=== PATIENT | female | born 1995 | race African-American/Black ===

== ENCOUNTER 2017-10-08 18:47 | Emergency (ER) | payer OTHER ==
--- NOTE | 2017-10-08 19:55 | PDOC ---
Rapid Medical Evaluation Time Seen by Provider: 10/08/17 19:52 Medical Evaluation: Allergies Allergy/AdvReac Type Severity Reaction Status Date / Time No Known Allergies Allergy Verified 12/25/13 12:30 10/08/17 19:53 I have performed a [id number] evaluation. The patient presents with a chief complaint: Dizzy, tired, pelvic pain and left breast pain "I feel a lump" LMP: 09/13/2017 Pertinent physical exam findings: L/S CTAB, Abd soft/NT/ND I have ordered the following: ua, upreg The patient will proceed to the ED for further evaluation.
[2017-10-08 20:01] VITALS: BP 131/76; PULSE 67; TEMP 98.8; BMI 34.3
--- NOTE | 2017-10-08 20:15 | PDOC ---
History of Present Illness - General Chief Complaint: Pain Stated Complaint: PAIN Time Seen by Provider: 10/08/17 19:52 - History of Present Illness Initial Comments: 10/08/17 20:15 Ms. Brady is a 22 yo female w/ pmh of HTN who presents for evaluation of 3 month history of left breast pain and 1 day history of right sided pelvic pain she describes as "bursting" in nature. She reports that she has intermittently had right pelvic pain in the past however it has never been as bad as earlier today. She also describes feeling a lump in her left breast today while in the shower. Ms. Brady also endorses recent single episode of constipation followed by diarrhea. The patient denies chest pain, shortness of breath, headache and dizziness. Denies fever, chills, nausea, vomit, diarrhea and constipation. Denies dysuria, frequency, urgency and hematuria. Allergies: NKDA Past History - Past Medical History Allergies/Adverse Reactions: Allergies Allergy/AdvReac Type Severity Reaction Status Date / Time No Known Allergies Allergy Verified 12/25/13 12:30 Home Medications: Ambulatory Orders Simethicone [Mylicon -] 80 mg PO QID PRN #30 tab.chew 12/25/13 - Immunization History Immunization Up to Date: Yes - Suicide/Smoking/Psychosocial Hx Smoking History: Current every day smoker Have you smoked in the past 12 months: Yes Number of Cigarettes Smoked Daily: 5 Information on smoking cessation initiated: No Hx Alcohol Use: No Drug/Substance Use Hx: No Substance Use Type: None Hx Substance Use Treatment: No Review of Systems - Review of Systems Comments:: 10/08/17 20:38 GENERAL/CONSTITUTIONAL: No fever or chills. No weakness. HEAD, EYES, EARS, NOSE AND THROAT: No change in vision. No ear pain or discharge. No sore throat. CARDIOVASCULAR: No chest pain or shortness of breath RESPIRATORY: No cough, wheezing, or hemoptysis. GASTROINTESTINAL: +Diarrhea/constipation as described. +1 day of right pelvic pain. No nausea or vomiting. GENITOURINARY: No dysuria, frequency, or change in urination. MUSCULOSKELETAL: No joint or muscle swelling or pain. No neck or back pain. SKIN: No rash NEUROLOGIC: No headache, vertigo, loss of consciousness, or change in strength/ sensation. ENDOCRINE: No increased thirst. No abnormal weight change HEMATOLOGIC/LYMPHATIC: No anemia, easy bleeding, or history of blood clots. ALLERGIC/IMMUNOLOGIC: No hives or skin allergy. *Physical Exam - Vital Signs Last Vital Signs Temp Pulse Resp BP Pulse Ox 98.8 F 67 20 131/76 100 10/08/17 19:56 10/08/17 19:56 10/08/17 19:56 10/08/17 19:56 10/08/17 19:56 - Physical Exam Comments: 10/08/17 20:38 GENERAL: Awake, alert, and fully oriented, in no acute distress HEAD: No signs of trauma, normocephalic, atraumatic EYES: PERRLA, EOMI, sclera anicteric, conjunctiva clear ENT: Auricles normal inspection, hearing grossly normal, nares patent, oropharynx clear without exudates. Moist mucosa NECK: Normal ROM, supple, no lymphadenopathy, JVD, or masses LUNGS: +Unable to appreciate lump in chest. No distress, speaks full sentences, clear to auscultation bilaterally HEART: Regular rate and rhythm, normal S1 and S2, no murmurs, rubs or gallops, peripheral pulses normal and equal bilaterally. ABDOMEN: Soft, nontender, normoactive bowel sounds. No guarding, no rebound. No masses EXTREMITIES: Normal inspection, Normal range of motion, no edema. No clubbing or cyanosis. NEUROLOGICAL: Cranial nerves II through XII grossly intact. Normal speech, normal gait, no focal sensorimotor deficits SKIN: Warm, Dry, normal turgor, no rashes or lesions noted. : Right sided adnexal tenderness. No CMT, Os closed. ED Treatment Course - LABORATORY CBC & Chemistry Diagram: 10/08/17 22:03 10/08/17 22:03 Medical Decision Making - Medical Decision Making 10/08/17 23:59 Ms. Brady is a 22 yo female w/ pmh as described who presents for evaluation of right sided abdominal pain. Patient well appearing, however exam concerning for right sided pelvic adnexal tenderness. US ordered in addition to labs as below for evaluation of ectopic vs. torsion. Patient noted to have 3.2 cm right ovarian cyst. No other concerning findings appreciated. No concern for acute process at this time. Discharging to home w/ instructions to f/u with [facility] TECHNICIAN for further evaluation. Laboratory Results - last 24 hr 10/08/17 10/08/17 10/08/17 22:03 22:03 22:03 WBC 9.2 RBC 4.51 Hgb 11.9 Hct 36.0 MCV 79.8 L MCH 26.3 MCHC 33.0 RDW 15.9 H Plt Count 221 MPV 9.7 Absolute Neuts (auto) 6.2 Neutrophils % 67.5 D Lymphocytes % 26.5 D Monocytes % 4.6 Eosinophils % 0.6 Basophils % 0.8 Nucleated RBC % 0 PT with INR INR Sodium 141 Potassium 4.3 Chloride 109 H Carbon Dioxide 25 Anion Gap 7 L BUN 17 Creatinine 0.8 Creat Clearance w eGFR > 60 Random Glucose 79 Calcium 9.0 Total Bilirubin 0.2 AST 12 L ALT 26 Alkaline Phosphatase 100 Total Protein 7.1 Albumin 3.6 Urine Color Ltyellow Urine Appearance Clear Urine pH 5.0 Ur Specific Alloy 1.026 Urine Protein Negative Urine Glucose (UA) Negative Urine Ketones Negative Urine Blood Negative Urine Nitrite Negative Urine Bilirubin Negative Urine Urobilinogen Negative Ur Leukocyte Esterase Negative Urine HCG, Qual Negative 10/08/17 22:14 WBC RBC Hgb Hct MCV MCH MCHC RDW Plt Count MPV Absolute Neuts (auto) Neutrophils % Lymphocytes % Monocytes % Eosinophils % Basophils % Nucleated RBC % PT with INR 13.00 INR 1.15 H Sodium Potassium Chloride Carbon Dioxide Anion Gap BUN Creatinine Creat Clearance w eGFR Random Glucose Calcium Total Bilirubin AST ALT Alkaline Phosphatase Total Protein Albumin Urine Color Urine Appearance Urine pH Ur Specific Alloy Urine Protein Urine Glucose (UA) Urine Ketones Urine Blood Urine Nitrite Urine Bilirubin Urine Urobilinogen Ur Leukocyte Esterase Urine HCG, Qual *DC/Admit/Observation/Transfer Diagnosis at time of Disposition: Ovarian cyst Qualifiers: Laterality: right Qualified Code(s): N83.201 - Unspecified ovarian cyst, right side - Discharge Dispostion Disposition: HOME - Referrals Referrals: Manohar Hopkins MD [Primary Care Provider] - Constance Lorenzo MD [Staff Physician] - - Patient Instructions Printed Discharge Instructions: DI for Ovarian Cyst Additional Instructions: Follow-up with [facility] TECHNICIAN later this week for further evaluation. Please return to ER if any further pain, fevers, chills, or other concerning symptoms. - Post Discharge Activity
--- NOTE | 2017-10-08 21:39 | PDOC ---
Attending Attestation - HPI HPI: 10/08/17 21:40 The patient is a 22 year old female, with a significant past medical history of hypertension, who presents to the emergency department with, 3 months of left sided breast pain and 1 day of intermittent right sided pelvic pain. She describes her pelvic pain as bursting. She reports feeling a lump in her left breast today. Allergies: NKA Past surgical history: None reported. Social history: Current smoker (5 cigarettes per day). Primary Care Physician: Dr. Manohar Hopkins <Mayank Oconnor - Last Filed: 10/08/17 21:40> - Resident Resident Name: Michoacano Middleton - ED Attending Attestation I have performed the following: I have examined & evaluated the patient, The case was reviewed & discussed with the resident, I agree w/resident's findings & plan, Exceptions are as noted - Physicial Exam PE: 10/08/17 23:27 Patient is awake and alert, obese, in no distress normocephalic and atraumatic PERRLA, EOMI, no scleral icterus CTA Abdomen is soft, nondistended,+ mild right lower pelvic tenderness deep palpation, there is no guarding or rebound, no CVA tenderness, See pelvic exam by Dr. Middleton - Medical Decision Making 10/08/17 23:28 Patient is a 22-year-old female who presents with atraumatic right lower pelvic pain. Patient is mild right lower pelvic and adnexal tenderness. Differential diagnoses includes ovarian cyst versus PID versus ovarian torsion. We'll obtain CBC/CMP/UA/ECG/ultrasound. Will reassess. 10/08/17 23:32 Patient is resting comfortably, tolerates by mouth. CBC/CMP/UA within normal limit. Transvaginal ultrasound shows a right sided ovarian cyst without evidence of torsion. I do not suspect acute appendicitis at this time. Will discharge. <Darrell Capellan - Last Filed: 10/08/17 23:32> Attestations - Attestations 10/08/17 21:40 Documentation prepared by Mayank Oconnor, acting as medical device for Darrell Capellan MD. <Mayank Oconnor - Last Filed: 10/08/17 21:40>
[2017-10-08 22:13] LABS: BASO % 0.8 % (0-2.0); EOS % 0.6 % (0-4.5); HEMOGLOBIN 11.9 GM/dL (10.7-15.3); LYMPH % 26.5 % (8-40); MCH 26.3 pg (25.7-33.7); MEAN CELL VOLUME 79.8 fl (80-96); MEAN PLT VOLUME 9.7 fl (7.5-11.1); MONO % 4.6 % (3.8-10.2); NEUT % 67.5 % (42.8-82.8); PLATELET COUNT 221 K/MM3 (134-434); RBC 4.51 M/mm3 (3.60-5.2); RDW 15.9 % (11.6-15.6); WHITE BLOOD COUNT 9.2 K/mm3 (4.0-10.0)
[2017-10-08 22:40] LABS: URINE APPEARANCE CLEAR; URINE BILIRUBIN NEGATIVE (<2.0 mg/dL); URINE COLOR LTYELLOW; URINE GLUCOSE (UA) NEGATIVE (NEGATIVE); URINE KETONE NEGATIVE (NEGATIVE); URINE LEUK ESTERASE NEGATIVE (NEGATIVE); URINE NITRITE NEGATIVE (NEGATIVE); URINE PROTEIN NEGATIVE (NEGATIVE); URINE UROBILINOGEN NEGATIVE mg/dL (0.2-1.0)
[2017-10-08 22:54] LABS: INR 1.15 (0.82-1.09)
[2017-10-08 22:56] LABS: ALBUMIN 3.6 g/dl (3.4-5.0); ALK PHOS 100 U/L (45-117); ANION GAP 7 (8-16); BILIRUBIN,TOTAL 0.2 mg/dL (0.2-1.0); BLOOD UREA NITROGEN 17 mg/dL (7-18); CHLORIDE 109 mmol/L (98-107); CO2 25 mmol/L (21-32); CREATININE 0.8 mg/dL (0.55-1.02); GLUCOSE,RANDOM 79 mg/dL (74-106); POTASSIUM 4.3 mmol/L (3.5-5.1); SGOT/AST 12 U/L (15-37); SGPT/ALT 26 U/L (12-78); SODIUM 141 mmol/L (136-145); TOT PROT 7.1 g/dl (6.4-8.2)
[2017-10-08 23:24] LABS: HCG,QUALITATIVE URINE NEGATIVE
== END 2017-10-09 00:10 | disposition home or self-care (01) ==
LOC: JER 18:47
DX: N83.201 Unspecified ovarian cyst, right side (principal); N63.20 Unspecified lump in the left breast, unspecified quadrant
CPT/HCPCS: 36415; 76830-TC; 80053; 81003; 84703; 85025; 85610; 86850; 86900; 86901; 87086; 99282-25

== ENCOUNTER 2018-02-15 16:00 | Emergency (ER) | payer OTHER ==
[2018-02-15 16:12] VITALS: BP 139/87; PULSE 80; TEMP 98.1; BMI 38.4
--- NOTE | 2018-02-15 17:27 | PDOC ---
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 She states over the last 2 or 3 days she's had blurring of her vision and bilateral eye pain R>L Past History - Past Medical History Allergies/Adverse Reactions: Allergies Allergy/AdvReac Type Severity Reaction Status Date / Time No Known Allergies Allergy Verified 02/15/18 16:08 Home Medications: Ambulatory Orders NK [No Known Home Medication] 02/15/18 COPD: No HTN: Yes (no meds) - Immunization History Immunization Up to Date: Yes - Suicide/Smoking/Psychosocial Hx Smoking History: Current every day smoker Have you smoked in the past 12 months: Yes Number of Cigarettes Smoked Daily: 5 Information on smoking cessation initiated: No Hx Alcohol Use: No Drug/Substance Use Hx: No Substance Use Type: None Hx Substance Use Treatment: No Review of Systems - Review of Systems HEENTM: Yes: See HPI, Eye Pain, Blurred Vision *Physical Exam - Vital Signs Last Vital Signs Temp Pulse Resp BP Pulse Ox 98.1 F 80 16 139/87 100 02/15/18 16:09 02/15/18 16:09 02/15/18 16:09 02/15/18 16:09 02/15/18 16:09 - Physical Exam Comments: 02/15/18 17:24 HEAD: NC/AT EYES: Conjuntiva clear, R eye papillary edema on fundiscopic examination, L appears normal on my exam, pupiles dilated but PERRL, EOMI, B20/40, R 20./30 L 20/30 NEUROLOGIC: No gross sensory or motor deficits, NVID SKIN: Normal color and temperature no lesions or rashes Moderate Sedation - Procedure Monitoring Vital Signs: Procedure Monitoring Vital Signs Temperature 98.1 F 02/15/18 16:09 Pulse Rate 80 02/15/18 16:09 Respiratory Rate 16 02/15/18 16:09 Blood Pressure 139/87 02/15/18 16:09 O2 Sat by Pulse Oximetry (%) 100 02/15/18 16:09 Medical Decision Making - Medical Decision Making 02/15/18 17:26 optomology called 02/15/18 17:42 d/w Dr Acuna, optomology, who will see pt in f/u after referal obtained from PCP , no emergent intervention required today. *DC/Admit/Observation/Transfer Diagnosis at time of Disposition: Edema of soft tissue due to increased capillary pressure - Discharge Dispostion Disposition: HOME Condition at time of disposition: Stable Decision to Admit order: No - Referrals Referrals: Dennis Hopkins [Primary Care Provider] - Mirna Acuna MD [Staff Physician] - - Patient Instructions Additional Instructions: Return to the emergency room should symptoms worsen or go unresolved. Please follow-up with your primary care physician and obtain a referral to ophthalmology. Slag Worker will see you with the next 1-2 days. - Post Discharge Activity
== END 2018-02-15 17:54 | disposition home or self-care (01) ==
LOC: JERFT 16:00 → JER 16:00 → JERFT 17:54
DX: H47.10 Unspecified papilledema (principal); I10 Essential (primary) hypertension
CPT/HCPCS: 99281-25

== ENCOUNTER 2018-02-19 10:14 | Emergency (ER) | payer OTHER ==
[2018-02-19 10:27] VITALS: BP 127/77; PULSE 71; TEMP 98.4; BMI 38.4
[2018-02-19] MEDS ORDERED: SODIUM CHLORIDE 1,000 ML IV STA (10:38)
[2018-02-19] MEDS ORDERED: FAMOTIDINE 20 MG/50 ML IVPB 20 MG/50 ML MG IVPB ONE ×2 (10:38→11:22)
[2018-02-19] MEDS ORDERED: ONDANSETRON 4 MG/2 ML VIAL IVPUSH ONE (10:38)
[2018-02-19 11:16] LABS: BASO % 0.7 % (0-2.0); EOS % 0.8 % (0-4.5); HEMATOCRIT 33.2 % (32.4-45.2); HEMOGLOBIN 11.3 GM/dL (10.7-15.3); LYMPH % 23.7 % (8-40); MCH 27.2 pg (25.7-33.7); MCHC 34.2 g/dl (32.0-36.0); MEAN CELL VOLUME 79.6 fl (80-96); MEAN PLT VOLUME 9.7 fl (7.5-11.1); MONO % 5.6 % (3.8-10.2); NEUT % 69.2 % (42.8-82.8); PLATELET COUNT 215 K/MM3 (134-434); RBC 4.17 M/mm3 (3.60-5.2); RDW 15.5 % (11.6-15.6); WHITE BLOOD COUNT 6.2 K/mm3 (4.0-10.0)
[2018-02-19 11:20] LABS: ALBUMIN 3.5 g/dl (3.4-5.0); ALK PHOS 92 U/L (45-117); ANION GAP 6 MMOL/L (8-16); BILIRUBIN,TOTAL 0.2 mg/dL (0.2-1); BLOOD UREA NITROGEN 15 mg/dL (7-18); CALCIUM 8.7 mg/dL (8.5-10.1); CHLORIDE 107 mmol/L (98-107); CO2 26 mmol/L (21-32); CREATININE 0.8 mg/dL (0.55-1.3); GLUCOSE,RANDOM 82 mg/dL (74-106); LIPASE 112 U/L (73-393); POTASSIUM 4.1 mmol/L (3.5-5.1); SGOT/AST 15 U/L (15-37); SGPT/ALT 16 U/L (13-61); SODIUM 139 mmol/L (136-145); TOT PROT 6.8 g/dl (6.4-8.2)
--- NOTE | 2018-02-19 11:25 | PDOC ---
History of Present Illness - General Chief Complaint: Nausea/Vomiting Stated Complaint: NAUSEA/VOMITING Time Seen by Provider: 02/19/18 10:34 History Source: Patient Exam Limitations: No Limitations - History of Present Illness Initial Comments: 02/19/18 11:14 22 yo female no sig pmh presents to the ED with 4 days of cough, sore throat, AIKEN , fevers and 1 episode of NB/NB vomiting today. Pt denies sick contacts, recent travel or eating new foods. Denies abdominal pain, changes in bowel or bladder habits. Past History - Past Medical History Allergies/Adverse Reactions: Allergies Allergy/AdvReac Type Severity Reaction Status Date / Time No Known Allergies Allergy Verified 02/19/18 10:26 Home Medications: Ambulatory Orders Ondansetron HCl [Zofran] 4 mg PO BID #6 tablet 02/19/18 COPD: No HTN: Yes (no meds) - Immunization History Immunization Up to Date: Yes - Suicide/Smoking/Psychosocial Hx Smoking History: Current every day smoker Have you smoked in the past 12 months: Yes Number of Cigarettes Smoked Daily: 2 Information on smoking cessation initiated: No Hx Alcohol Use: No Drug/Substance Use Hx: No Substance Use Type: None Hx Substance Use Treatment: No Review of Systems - Review of Systems Constitutional: Yes: Fever. No: Chills, Weakness Respiratory: No: Shortness of Breath Cardiac (ROS): No: Chest Pain ABD/GI: Yes: Nausea, Vomiting. No: Constipated, Diarrhea : No: Burning, Dysuria Neurological: Yes: Headache. No: Numbness, Tingling, Ataxia, Dizziness *Physical Exam - Vital Signs Last Vital Signs Temp Pulse Resp BP Pulse Ox 98.4 F 71 18 127/77 99 02/19/18 10:24 02/19/18 10:24 02/19/18 10:24 02/19/18 10:24 02/19/18 10:24 - Physical Exam General Appearance: Yes: Nourished, Appropriately Dressed. No: Apparent Distress HEENT: positive: EOMI. negative: Pale Conjunctivae, Tonsillar Erythema, TM Bulging, TM Erythema Respiratory/Chest: positive: Lungs Clear, Normal Breath Sounds. negative: Crackles, Wheezing Cardiovascular: positive: Regular Rhythm, Regular Rate, S1, S2. negative: Edema , JVD, Murmur Vascular Pulses: Dorsalis-Pedis (R): 3+, Doralis-Pedis (L): 3+ Gastrointestinal/Abdominal: positive: Normal Bowel Sounds, Flat, Soft. negative : Pulsatile Mass, Distended, Guarding, Rebound, Tenderness Extremity: positive: Normal Capillary Refill Integumentary: positive: Normal Color, Dry, Warm Neurologic: positive: Fully Oriented, Alert, Normal Mood/Affect, Normal Response Moderate Sedation - Procedure Monitoring Vital Signs: Procedure Monitoring Vital Signs Temperature 98.4 F 02/19/18 10:24 Pulse Rate 71 02/19/18 10:24 Respiratory Rate 18 02/19/18 10:24 Blood Pressure 127/77 02/19/18 10:24 O2 Sat by Pulse Oximetry (%) 99 02/19/18 10:24 ED Treatment Course - LABORATORY CBC & Chemistry Diagram: 02/19/18 10:55 02/19/18 10:55 Medical Decision Making - Medical Decision Making 02/19/18 12:33 22 yo female presents with 3 days AIKEN, and 1 episode NB/NB vomiting. No concerning s/s on exam. See PE Vitals WNL Labs WNL, no WBC UA negative Strep and Flu negative States she had work at 10 30 am and needs a note. Tylenol by mouth given for AIKEN and Zofran sent to pharmacy PCP follow up and strict return precautions given *DC/Admit/Observation/Transfer Diagnosis at time of Disposition: Viral syndrome - Discharge Dispostion Disposition: HOME Condition at time of disposition: Stable Decision to Admit order: No - Referrals Referrals: Manohar Hopkins MD [Primary Care Provider] - - Patient Instructions Printed Discharge Instructions: DI for Nausea -- Adult, DI for Vomiting -- Adult Additional Instructions: Please follow up with your Primary Care Doctor within the next 2 days. Take over the counter Tylenol and Motrin for continued headaches. Take Zofran as needed for nausea as prescribed. Please return to the emergency room for new or worsening symptoms including but not limited to: high fevers, severe headache or nausea not relieved by medications. Thank you - Post Discharge Activity Forms/Work/School Notes: Back to Work
[2018-02-19 12:04] LABS: HCG,QUALITATIVE URINE Negative
[2018-02-19 12:09] LABS: URINE APPEARANCE CLEAR; URINE BILIRUBIN NEGATIVE (<2.0 mg/dL); URINE COLOR LTYELLOW; URINE GLUCOSE (UA) NEGATIVE (NEGATIVE); URINE KETONE NEGATIVE (NEGATIVE); URINE LEUK ESTERASE NEGATIVE (NEGATIVE); URINE NITRITE NEGATIVE (NEGATIVE); URINE PROTEIN NEGATIVE (NEGATIVE); URINE UROBILINOGEN NEGATIVE mg/dL (0.2-1.0)
[2018-02-19] MEDS ORDERED: ACETAMINOPHEN 325 MG TABLET (FP) PO ONE (12:35)
--- NOTE | 2018-02-19 12:44 | PDOC ---
Attending Attestation - Resident Resident Name: Vinay Suarez - ED Attending Attestation I have performed the following: I have examined & evaluated the patient, The case was reviewed & discussed with the resident, I agree w/resident's findings & plan - HPI HPI: 02/19/18 12:41 Ms. Prado is a 22 year old female with past medical history significant for HTN presents to the emergency department with 4 day hx of nonproductive cough, headache. The patient reports the symptoms progressed into nausea with a single episode of NBNB emesis today. took an unknown abx for her ear yesterday. Denies diarrhea, fever, chills, known sick contact, or recent travel. No surgical history reported. Allergies: NKA Social history: Current smoker (5 cigarettes per day). PCP: Dr. Manohar Hopkins - Physicial Exam PE: 02/19/18 12:42 NAD, well appearing, MMM, nl conjunctiva, anicteric; neck supple. lungs clear, RRR, abdomen soft nontender. KOTHARI x4, no focal neuro deficits. No peripheral edema. normal color for ethnicity, WWP. - Medical Decision Making 02/19/18 12:42 see HPI for details well appearing, vitals wnl.no neuro changes, no systemic findings or infection. labs and lytes normal strep test and flu neg likely medication side effect, took abx with GI side effect. work note given fluids and pepcid, tylenol for mild headache. DC with zofran, told to not take medications that was not prescribed. doubt bacterial etiology or infection, so no abx indicated. DC in stable condition,r eturn precautions discussed. pt made aware of impression and plan agreeable
[2018-02-19] MEDS ORDERED: ACETAMINOPHEN 325 MG TABLET (FP) ONE (12:47)
== END 2018-02-19 13:04 | disposition home or self-care (01) ==
LOC: JER 10:14
PROC: 3E033GC Introduction of Other Therapeutic Substance into Peripheral Vein, Percutaneous Approach (ICD-10-PCS; principal; 2018-02-19)
DX: B34.9 Viral infection, unspecified (principal); R11.2 Nausea with vomiting, unspecified
CPT/HCPCS: 36415; 80053; 81003; 83690; 84703; 85025; 87070; 87077; 87804; 96365; 99282-25; J7030

== ENCOUNTER 2018-03-09 12:21 | Emergency (ER) | payer OTHER ==
--- NOTE | 2018-03-09 12:28 | PDOC ---
Rapid Medical Evaluation Medical Evaluation: Allergies Allergy/AdvReac Type Severity Reaction Status Date / Time No Known Allergies Allergy Verified 02/19/18 10:26 I have performed a brief in-person evaluation of this patient. The patient presents with a chief complaint of: c/o headache, dizziness, blurred vision going on for months; was seen by applications processor (see patient's note for findings); advised to see neurologist to get MRI and/or spinal tap to r/o papilledema Pertinent physical exam findings: Unremarkable; no gross focal deficits I have ordered the following: UCG The patient will proceed to the ED for further evaluation. 03/09/18 12:24
[2018-03-09 12:29] VITALS: BMI 41.8
--- NOTE | 2018-03-09 12:36 | PDOC ---
History of Present Illness - General History Source: Patient, Other (Eye doctor note. 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 The patient reports shes been having one month of a headache, pain with eye movement, blurry vision, and diplopia. The patient indicates the symptoms are associated with difficulty falling asleep, reports taking Benadryl , without relief. The patient reports additional complain of urinary incontinence denies numbness or tingling to the fingers. The patient was seen at [facility] where Dr. Esteban Faustin saw her. Per letter by Dr. Faustin, BCVA is 20/30 OD and 20/30 OS and IOP of 22/22 mmHg, dilated eye exam showed blurred and obscured disc margin, edema OU. The patient was sent to the ER for further work up to r/o papilledema. LMP: Currently. Allergies: NKDA Social history: Tobacco use reported. Surgical history: L. leg surgery (July 2016) PCP: Dr. Hopkins. <Shayy Villatoro - Last Filed: 03/09/18 14:00> <Darrell Capellan - Last Filed: 03/12/18 02:02> - General Chief Complaint: Eye Problem Stated Complaint: HEADACHE, BLURRY VISION, SENT BY EYE DOCTOR Time Seen by Provider: 03/09/18 12:36 Past History <Shayy Villatoro - Last Filed: 03/09/18 14:00> - Past Medical History COPD: No HTN: Yes (no meds) - Immunization History Immunization Up to Date: Yes - Suicide/Smoking/Psychosocial Hx Smoking History: Never smoked Have you smoked in the past 12 months: No Number of Cigarettes Smoked Daily: 2 Information on smoking cessation initiated: No Hx Alcohol Use: No Drug/Substance Use Hx: No Substance Use Type: None Hx Substance Use Treatment: No <Darrell Capellan - Last Filed: 03/12/18 02:02> - Past Medical History Allergies/Adverse Reactions: Allergies Allergy/AdvReac Type Severity Reaction Status Date / Time No Known Allergies Allergy Verified 03/09/18 12:29 Home Medications: Ambulatory Orders Ondansetron HCl [Zofran] 4 mg PO BID #6 tablet 02/19/18 Azithromycin [Zithromax -] 250 mg PO UTDICT #6 tab 02/22/18 acetaZOLAMIDE [Diamox Sequels -] 500 mg PO BID #28 capsule.er 03/09/18 Review of Systems - Review of Systems Able to Perform ROS?: Yes Comments:: 03/09/18 12:56 CONSTITUTIONAL: No fever, no chills, no fatigue EYES: +eye pain, pain with movement, blurry vision and diplopia. ENT: No ear pain, no sore throat CARDIOVASCULAR: No chest pain, no palpitations RESPIRATORY: No cough, no SOB GI: No abdominal pain, no nausea, no vomiting, no constipation, no diarrhea GENITOURINARY: +urinary incontinence. No dysuria, no frequency, no hematuria MUSKULOSKELETAL: No back pain, no joint pain, no myalgias SKIN: No rash NEURO: +headache. <Shayy Villatoro - Last Filed: 03/09/18 14:00> *Physical Exam - Vital Signs Last Vital Signs Temp Pulse Resp BP Pulse Ox 98.4 F 79 17 124/92 100 03/09/18 12:26 03/09/18 12:26 03/09/18 12:26 03/09/18 12:26 03/09/18 12:26 - Physical Exam Comments: 03/09/18 14:01 CONSTITUTIONAL: +Morbid obese. Well-appearing; well-nourished; in no apparent distress HEAD: Normocephalic; atraumatic EYES: PERRL; EOM intact ENMT: External appears normal; normal oropharynx NECK: Supple; non-tender; no cervical lymphadenopathy CARD: Normal S1, S2; no murmurs, rubs, or gallops RESP: Normal chest excursion with respiration; breath sounds clear and equal bilaterally; no wheezes, rhonchi, or rales ABD: Soft, non-distended; non-tender; no palpable organomegaly, no palpable hernias EXT: Normal ROM in all four extremities; non-tender to palpation; distal pulses intact SKIN: Warm, dry, no rash NEURO: +Cranial Nerve 2-12 intact, 5/5 x4 motor strength, no pronator drift. Decreased reflex at the knee bilaterally. <Shayy Villatoro - Last Filed: 03/09/18 14:00> - Vital Signs Last Vital Signs Temp Pulse Resp BP Pulse Ox 98.4 F 79 17 124/92 100 03/09/18 12:26 03/09/18 12:26 03/09/18 12:26 03/09/18 12:26 03/09/18 12:26 <Darrell Capellan - Last Filed: 03/12/18 02:02> Moderate Sedation - Procedure Monitoring Vital Signs: Procedure Monitoring Vital Signs Temperature 98.4 F 03/09/18 12:26 Pulse Rate 79 03/09/18 12:26 Respiratory Rate 17 03/09/18 12:26 Blood Pressure 124/92 03/09/18 12:26 O2 Sat by Pulse Oximetry (%) 100 03/09/18 12:26 <hSayy Villatoro - Last Filed: 03/09/18 14:00> - Procedure Monitoring Vital Signs: Procedure Monitoring Vital Signs Temperature 98.4 F 03/09/18 12:26 Pulse Rate 79 03/09/18 12:26 Respiratory Rate 17 03/09/18 12:26 Blood Pressure 124/92 03/09/18 12:26 O2 Sat by Pulse Oximetry (%) 100 03/09/18 12:26 <Darrell Capellan - Last Filed: 03/12/18 02:02> ED Treatment Course - LABORATORY CBC & Chemistry Diagram: 03/09/18 13:26 03/09/18 13:26 <Shayy Villatoro - Last Filed: 03/09/18 14:00> - LABORATORY CBC & Chemistry Diagram: 03/09/18 13:26 03/09/18 13:26 <Darrell Capellan - Last Filed: 03/12/18 02:02> Medical Decision Making - Medical Decision Making 03/09/18 12:56 Phone Calls: Case discussed with Dr. Faustin [phone] at 12:46 pm. <Shayy Villatoro - Last Filed: 03/09/18 14:00> - Medical Decision Making 03/09/18 16:08 Patient is a 22-year-old female, morbidly obese, who presents to the ER with chronic headaches which are worse in supine position, diplopia as well as blurry vision who was recently diagnosed with bilateral papilledema by ophthalmology. Patient is nonfocal neurologically. MRI of brain reveals no evidence of underlying intracranial pathology. LP was performed with opening pressure noted to be between 39 and 40mm. CSF was obtained for analysis. Patient reports significant improvement in her headache and visual symptoms after the procedure. Will discuss with neurology. We'll consider Diamox with outpatient follow-up. <Darrell Capellan - Last Filed: 03/12/18 02:02> *DC/Admit/Observation/Transfer - Attestations Scribe Attestion: 03/09/18 12:56 Documentation prepared by Shayy Villatoro, acting as pediatric medical assistant for Darrell Capellan MD. <Shayy Villatoro - Last Filed: 03/09/18 14:00> - Attestations Physician Attestion: 03/09/18 16:07 The documentation was prepared by the scribe under my direct supervision. I have reviewed the documentation which correctly represents the findings, medical decision-making and critical action taken by me. <Darrell Capellan - Last Filed: 03/12/18 02:02> Diagnosis at time of Disposition: Elevated intracranial pressure - Discharge Dispostion Disposition: HOME - Prescriptions Prescriptions: acetaZOLAMIDE [Diamox Sequels -] 500 mg PO BID #28 capsule.er - Referrals Referrals: [facility] [place] [facility] [place] [Provider Group] Adebayo Hamilton MD [Staff Physician] - - Patient Instructions Additional Instructions: You were seen in the emergency department for your headaches. your lumbar puncture indicates you have elevated intracranial pressures and we are prescribing you a medication to be taken twice a day. you need to follow up with the neurologist immediately after discharge. his phone number is included in the discharge packet. please take the prescription sent to the pharmacy you stated at registration as directed. please return to the emergency department if you have worsening symptoms or new concerning symptoms such as weakness, uncontrolled vomiting, worsening headaches, visual loss, and confusion. thank you.
[2018-03-09 13:47] LABS: BASO % 0.8 % (0-2.0); EOS % 0.7 % (0-4.5); HEMATOCRIT 35.6 % (32.4-45.2); HEMOGLOBIN 11.2 GM/dL (10.7-15.3); LYMPH % 31.3 % (8-40); MCH 25.2 pg (25.7-33.7); MCHC 31.4 g/dl (32.0-36.0); MEAN CELL VOLUME 80.4 fl (80-96); MEAN PLT VOLUME 9.3 fl (7.5-11.1); MONO % 6.1 % (3.8-10.2); NEUT % 61.1 % (42.8-82.8); PLATELET COUNT 208 K/MM3 (134-434); RBC 4.42 M/mm3 (3.60-5.2); RDW 15.4 % (11.6-15.6); WHITE BLOOD COUNT 5.7 K/mm3 (4.0-10.0)
[2018-03-09 14:09] LABS: INR 1.08 (0.83-1.09); PROTHROMBIN TIME (PATIENT) 12.7 SEC (9.7-13.0)
[2018-03-09 14:22] LABS: ALBUMIN 3.5 g/dl (3.4-5.0); ALK PHOS 111 U/L (45-117); ANION GAP 6 MMOL/L (8-16); BILIRUBIN,TOTAL 0.3 mg/dL (0.2-1); BLOOD UREA NITROGEN 15 mg/dL (7-18); CALCIUM 8.7 mg/dL (8.5-10.1); CHLORIDE 104 mmol/L (98-107); CO2 27 mmol/L (21-32); CREATININE 0.8 mg/dL (0.55-1.3); GLUCOSE,RANDOM 83 mg/dL (74-106); POTASSIUM 4.6 mmol/L (3.5-5.1); SGOT/AST 26 U/L (15-37); SGPT/ALT 33 U/L (13-61); SODIUM 137 mmol/L (136-145); TOT PROT 7.2 g/dl (6.4-8.2)
[2018-03-09] MEDS ORDERED: MIDAZOLAM HCL 2 MG/2 ML SINGLE DOSE VIAL ONE (14:22)
[2018-03-09] MEDS ORDERED: LIDOCAINE 1%/EPI 1:100000 (20 ML MULTI DOSE VIAL) ONE (14:22)
[2018-03-09 15:49] LABS: ERYTHROCYTE SEDIMENTATION RATE 28 mm/hr (0-20)
[2018-03-09] MEDS ORDERED: MIDAZOLAM HCL 2 MG/2 ML SINGLE DOSE VIAL IVPUSH ONE (15:55)
--- NOTE | 2018-03-09 16:58 | PDOC ---
*Physical Exam - Vital Signs Last Vital Signs Temp Pulse Resp BP Pulse Ox 98.4 F 79 17 124/92 100 03/09/18 12:26 03/09/18 12:26 03/09/18 12:26 03/09/18 12:26 03/09/18 12:26 ED Treatment Course - LABORATORY CBC & Chemistry Diagram: 03/09/18 13:26 03/09/18 13:26 - ADDITIONAL ORDERS Additional order review: Laboratory Results 03/09/18 03/09/18 03/09/18 13:26 13:26 13:26 PT with INR 12.70 INR 1.08 Sodium 137 Potassium 4.6 Chloride 104 Carbon Dioxide 27 Anion Gap 6 L BUN 15 Creatinine 0.8 Creat Clearance w eGFR > 60 Random Glucose 83 Calcium 8.7 Total Bilirubin 0.3 AST 26 ALT 33 Alkaline Phosphatase 111 C-Reactive Protein 1.4 H Total Protein 7.2 Albumin 3.5 Urine HCG, Qual Negative 03/09/18 13:26 RBC 4.42 MCV 80.4 MCHC 31.4 L RDW 15.4 MPV 9.3 Neutrophils % 61.1 Lymphocytes % 31.3 D Monocytes % 6.1 Eosinophils % 0.7 Basophils % 0.8 - Medications Given in the ED: ED Medications Discontinued Medications Generic Name Dose Route Start Last Admin Trade Name Freq PRN Reason Stop Dose Admin Midazolam HCl 2 mg 03/09/18 15:55 03/09/18 14:55 Versed - IVPUSH 03/09/18 15:56 2 mg ONCE ONE Administration Medical Decision Making - Medical Decision Making Prior to LP, patient has CN2-12 grossly intact, bilateral 5/5 strength UE and LE , intact sensation bilaterally, intact finger to nose. The patient tolerated the procedure well with minimal bleeding and discomfort. The patient 30 minutes later had retention of CN2-12 as grossly intact, bilateral 5/5 strength UE and LE, intact sensation bilaterally, and intact finger to nose bilaterally. *DC/Admit/Observation/Transfer Diagnosis at time of Disposition: Elevated intracranial pressure - Discharge Dispostion Disposition: HOME Decision to Admit order: No - Prescriptions Prescriptions: acetaZOLAMIDE [Diamox Sequels -] 500 mg PO BID #28 capsule.er - Referrals Referrals: Adebayo Hamilton MD [Staff Physician] - [facility] [place] [facility] [place] [Provider Group] - Patient Instructions Additional Instructions: You were seen in the emergency department for your headaches. your lumbar puncture indicates you have elevated intracranial pressures and we are prescribing you a medication to be taken twice a day. you need to follow up with the neurologist immediately after discharge. his phone number is included in the discharge packet. please take the prescription sent to the pharmacy you stated at registration as directed. please return to the emergency department if you have worsening symptoms or new concerning symptoms such as weakness, uncontrolled vomiting, worsening headaches, visual loss, and confusion. thank you. - Post Discharge Activity Lumbar Puncture Indication: IOP >20 with headache and visual changes bilaterally. Risks and Benefits Explained: Yes Consent on Chart: Yes Sterile Technique: Yes Skin prep: Betadine Position: Left lateral decubitus Site: L4-L51 Local Anesthesia: 1% Lidocaine with epi Opening Pressure(mmHg): 39 Closing Pressure(mmHg): 28 CSF Color, Appearance: Clear Sterile Dressing Applied: Yes Remarks: Pressure at the opening was 39-40 mmhg. At the conclusion of the procedure, a total of 12 cc of CSF was collected (3 cc each vial x4) and the pressure at the end of the procedure is 28 mmhg.
[2018-03-09 17:16] LABS: CSF APPEARANCE CLEAR; CSF COLOR COLORLESS; CSF WBC 2
[2018-03-09 18:20] LABS: BF GLUCOSE (CSF ONLY) 54 mg/dL (40-70)
[2018-03-09 18:21] VITALS: BP 138/86; PULSE 71; TEMP 98.2
== END 2018-03-09 18:15 | disposition home or self-care (01) ==
LOC: JER 12:21
PROC: 009U3ZZ Drainage of Spinal Canal, Percutaneous Approach (ICD-10-PCS; principal; 2018-03-09)
DX: G93.2 Benign intracranial hypertension (principal); R51 Headache; H53.8 Other visual disturbances; H53.2 Diplopia; H57.10 Ocular pain, unspecified eye
CPT/HCPCS: 36415; 70551-TC; 80053; 82438; 82945; 84157; 84703; 85025; 85610; 85651; 86140; 87070; 87205; 99283-25

== ENCOUNTER 2020-09-21 18:28 | Inpatient (IN) | payer OTHER ==
[2020-09-21 18:36] VITALS: BMI 37.4
[2020-09-21] MEDS ORDERED: METOCLOPRAMIDE HCL INJECTION 10 MG/2 ML VIAL IVPUSH ONE (20:22)
[2020-09-21] MEDS ORDERED: METOCLOPRAMIDE HCL INJECTION 10 MG/2 ML VIAL ONE (20:37)
[2020-09-21 20:44] LABS: BASO % 1.1 % (0-2.0); EOS % 0.8 % (0-4.5); HEMATOCRIT 37.1 % (32.4-45.2); HEMOGLOBIN 12.3 GM/dL (10.7-15.3); LYMPH % 32.7 % (8-40); MCH 25.3 pg (25.7-33.7); MCHC 33.1 g/dl (32.0-36.0); MEAN CELL VOLUME 76.5 fl (80-96); MEAN PLT VOLUME 9.4 fl (7.5-11.1); MONO % 5.8 % (3.8-10.2); NEUT % 59.6 % (42.8-82.8); PLATELET COUNT 284 10^3/uL (134-434); RBC 4.85 M/mm3 (3.60-5.2); RDW 16.2 % (11.6-15.6)
[2020-09-21 20:57] LABS: BLOOD UREA NITROGEN 13.6 mg/dL (7-18); CALCIUM 8.9 mg/dL (8.5-10.1)
[2020-09-21 20:58] LABS: ALBUMIN 3.8 g/dl (3.4-5.0); MAGNESIUM 2.2 mg/dL (1.8-2.4)
[2020-09-21 21:01] LABS: CREATININE 0.8 mg/dL (0.55-1.3); PHOSPHOROUS 3.2 mg/dL (2.5-4.9)
[2020-09-21 21:02] LABS: BILIRUBIN,TOTAL 0.4 mg/dL (0.2-1)
[2020-09-21] MEDS ORDERED: PROCHLORPERAZINE INJECTION 10 MG/2 ML VIAL IVPB ONE (21:02)
[2020-09-21] MEDS ORDERED: SODIUM CHLORIDE 0.9% 500 ML INFUS.BAG IV ONE (21:02)
[2020-09-21] MEDS ORDERED: PROCHLORPERAZINE INJECTION 10 MG/2 ML VIAL ONE (21:50)
[2020-09-21] MEDS ORDERED: LIDOCAINE 1%/EPI 1:100000 (20 ML MULTI DOSE VIAL) ONE (22:58)
[2020-09-21] MEDS ORDERED: ACETAMINOPHEN 1000 MG/100 ML VIAL (NON FORMULARY) IVPB ONE (23:30)
[2020-09-21] MEDS ORDERED: LORazepam 2 MG/ML SDV VIAL IVPUSH ONE (23:32)
[2020-09-22] MEDS ORDERED: LORazepam 2 MG/ML SDV VIAL ONE (00:01)
[2020-09-22] MEDS ORDERED: ACETAMINOPHEN INJECTION 100 ML IVPB ONE (00:02)
[2020-09-22] MEDS ORDERED: LIDOCAINE HCL 1%, 10 MG/ML (50 mL VIAL) SQ ONE (00:28)
[2020-09-22] MEDS ORDERED: LIDOCAINE HCL 1%, 10 MG/ML (20ML VIAL) ONE (00:33)
[2020-09-22 04:02] VITALS: TEMP 98.4
[2020-09-22] MEDS ORDERED: ACETAMINOPHEN 1000 MG/100 ML VIAL (NON FORMULARY) IVPB PRN (04:24)
[2020-09-22] MEDS ORDERED: ONDANSETRON 4 MG/2 ML VIAL IVPUSH PRN (04:24)
[2020-09-22 09:37] VITALS: BP 146/92; PULSE 70
[2020-09-22 09:40] LABS: INR 1.21 (0.83-1.09); PROTHROMBIN TIME (PATIENT) 14.6 SEC (9.7-13.0)
[2020-09-22] MEDS ORDERED: PRENATAL VITAMINS W/ FOLIC ACID TABLET (FP) PO SCH (10:00)
[2020-09-22 10:32] LABS: HEMATOCRIT 36.6 % (32.4-45.2); MCH 25.4 pg (25.7-33.7); MCHC 32.9 g/dl (32.0-36.0); MEAN CELL VOLUME 77.1 fl (80-96); MEAN PLT VOLUME 9.3 fl (7.5-11.1); PLATELET COUNT 239 10^3/uL (134-434); RBC 4.75 M/mm3 (3.60-5.2); RDW 16.3 % (11.6-15.6); WHITE BLOOD COUNT 7.9 K/mm3 (4.0-10.0)
[2020-09-22 10:52] LABS: CALCIUM 8.7 mg/dL (8.5-10.1)
[2020-09-22 10:53] LABS: BLOOD UREA NITROGEN 9.8 mg/dL (7-18)
[2020-09-22 10:56] LABS: CREATININE 0.8 mg/dL (0.55-1.3)
[2020-09-22 12:28] LABS: CSF APPEARANCE CLEAR; CSF COLOR COLORLESS
[2020-09-22 12:34] LABS: CSF WBC 0
[2020-09-22 12:38] LABS: BF GLUCOSE (CSF ONLY) 56 mg/dL (40-70)
[2020-09-22] MEDS ORDERED: acetaZOLAMIDE 250 MG TABLET PO SCH (13:45)
[2020-09-22] MEDS ORDERED: PT OWN MED DRAWER 7, Y5N ONE (14:06)
== END 2020-09-22 18:12 | disposition home or self-care (01) | DRG 54 ==
LOC: JER 18:28 → JERBED 09-22 01:44 → J7W 09-22 09:41
PROVIDERS: ADMIT Internal Medicine; ATTEND Internal Medicine
PROC: 009U3ZX Drainage of Spinal Canal, Percutaneous Approach, Diagnostic (ICD-10-PCS; principal; 2020-09-22)
DX: R51.9 Headache, unspecified (principal); H53.8 Other visual disturbances; F17.210 Nicotine dependence, cigarettes, uncomplicated; E66.9 Obesity, unspecified; Z68.37 Body mass index [BMI] 37.0-37.9, adult
CPT/HCPCS: 36415; 62272; 70450-TC; 76512; 80048; 80053; 82945; 83735; 84100; 84157; 84703; 85025; 85027; 85610; 85730; 87070; 87205; 87899; 93005; 93010; 99285-25; C9803; J0131; U0003; U0005

== ENCOUNTER 2020-11-30 20:17 | Emergency (ER) | payer OTHER ==
[2020-11-30 20:23] VITALS: BP 143/99; PULSE 96; TEMP 99.1; BMI 44.4
== END 2020-11-30 21:00 | disposition home or self-care (01) ==
LOC: JER 20:17
DX: U07.1 COVID-19 (principal)
CPT/HCPCS: 99283-25; C9803; U0003; U0005